=== PATIENT | female | born 1940 | race Caucasian/White ===

== ENCOUNTER 2018-03-18 10:48 | Emergency (ER) | payer OTHER, MEDICARE, BC ==
[2018-03-18 11:24] LABS: BASOPHILS % (AUTO) 1 % (0-3); EOSINOPHILS % (AUTO) 4 % (0-9); HEMATOCRIT 46 % (35-47); HEMOGLOBIN 14.6 gm/dl (12.0-15.5); LYMPHOCYTES % (AUTO) 24.6 % (10-50); MEAN CORPUSCULAR HGB CONC 31.6 gm/dl (32.0-36.0); MEAN CORPUSCULAR VOLUME 98 fL (81-99); MONOCYTES % (AUTO) 9.6 % (0-12); NEUTROPHILS % (AUTO) 60.6 % (37-80)
[2018-03-18 11:33] LABS: INR 0.95 (0.86-1.12)
[2018-03-18 11:38] LABS: ALBUMIN 3.8 gm/dl (3.4-5.0); BILIRUBIN,TOTAL 0.5 mg/dl (0.2-1.0); CALCIUM 9.1 mg/dl (8.5-10.1); CREATININE 0.81 mg/dl (0.60-1.00); POTASSIUM 4.2 mMol/L (3.5-5.1); TOTAL PROTEIN 7.6 gm/dl (6.4-8.2)
[2018-03-18] MEDS ORDERED: FENTANYL 100MCG/2ML SOL IV ONE (11:50)
[2018-03-18] MEDS ORDERED: FENTANYL 100MCG/2ML SOL ONE (11:51)
[2018-03-18] MEDS ORDERED: DIAZEPAM 5 MG TAB PO ONE (12:10)
[2018-03-18 12:47] VITALS: TEMP 98.1
[2018-03-18] MEDS ORDERED: MORPHINE SULFATE 10 MG/ML SOL IV ONE (13:45)
[2018-03-18] MEDS ORDERED: MORPHINE SULFATE 10 MG/ML SOL ONE (13:50)
[2018-03-18 16:56] VITALS: BP 168/73; PULSE 68; RESP 18; O2SAT 96
== END 2018-03-18 14:25 | disposition short-term general hospital (02) | DRG 563 ==
LOC: ED 10:48
DX: S43.004A Unspecified dislocation of right shoulder joint, initial encounter (principal); W19.XXXA Unspecified fall, initial encounter; S00.83XA Contusion of other part of head, initial encounter
CPT/HCPCS: 36415; 70450; 73030; 80053; 85025; 85610; 96374; 96375; 99283; 99285; J2270; J3010; A9270-GY